=== PATIENT | female | born 1930 | race Caucasian/White ===

== ENCOUNTER 2019-07-02 06:15 | Observation (INO) ==
[2019-07-02] MEDS ORDERED: Albuterol 2.5 MG/3 ML NEBULIZER IH PRN (06:51)
[2019-07-02] MEDS ORDERED: Ringers Solution, Lactated 1,000 ML IVC SCH (07:00)
[2019-07-02] MEDS ORDERED: Lidocaine -MPF 2% 2 ML VIAL ONE ×2 (07:01→07:19)
[2019-07-02] MEDS ORDERED: Ondansetron 4 MG/2 ML VIAL IVP ONE (07:12)
[2019-07-02] MEDS ORDERED: *HR* Promethazine 25 MG/ML VIAL IVP PRN (07:12)
[2019-07-02] MEDS ORDERED: *HR* OxyCODONE Immed Rel 5 MG TABLET PO PRN ×2 (07:12→10:54)
[2019-07-02] MEDS ORDERED: *HR* HYDROmorphone (PF) 1 MG/ML SYRINGE IVP PRN (07:12)
[2019-07-02] MEDS ORDERED: Ethanol\\Acetic Acid\\Na Ace\\Ben 1,000 ML IRRIG.SOLN IR ONE (07:17)
[2019-07-02] MEDS ORDERED: *HR* Propofol 200 MG/20 ML VIAL IVP ONE (07:18)
[2019-07-02] MEDS ORDERED: Ropivacaine/PF 0.5% 30 ML VIAL ONE (07:24)
[2019-07-02] MEDS ORDERED: CeFAZolin Syr 2,000MG/20 ML 2,000 MG/20 ML SYRINGE IVPB ONE (07:28)
[2019-07-02] MEDS ORDERED: Acetaminophen IV 1,000 MG/100 ML INFUS..BTL ONE (08:00)
[2019-07-02] MEDS ORDERED: Dexamethasone 4 MG/ML VIAL ONE (08:35)
[2019-07-02] MEDS ORDERED: Ondansetron 4 MG/2 ML VIAL ONE (08:35)
[2019-07-02 10:05] LABS: Hematocrit 32.9 % (35.3-44.9); Hemoglobin 10.6 g/dL (11.5-15.4)
[2019-07-02] MEDS ORDERED: Temazepam 15 MG CAPSULE PO PRN (10:54)
[2019-07-02] MEDS ORDERED: traMADol 50 MG TABLET PO PRN (10:54)
[2019-07-02] MEDS ORDERED: Sennosides 8.6 MG TABLET PO PRN (10:54)
[2019-07-02] MEDS ORDERED: MOM Conc 10 ML UD.LIQ PO PRN (10:54)
[2019-07-02] MEDS ORDERED: Ondansetron 4 MG/2 ML VIAL IVP PRN (10:54)
[2019-07-02] MEDS ORDERED: *HR* OxyCODONE/APAP 5/325 TABLET PO PRN (10:54)
[2019-07-02] MEDS: Budesonide/Formoterol 80/4.5 1 PUFF INH IH SCH ×2 (11:54→20:36)
[2019-07-02] MEDS: Multivit/Ca/Min/Fe/FA 1 TAB TABLET PO SCH (13:35)
[2019-07-02] MEDS: Cholecalciferol (D-3) 1,000 UNIT (25MCG) TABLET PO SCH (13:35)
[2019-07-02] MEDS: Fluticasone Propionate Nasal 50 MCG/SPRAY BOTTLE NS SCH (13:36)
[2019-07-02] MEDS: Ringers Solution, Lactated 1,000 ML IVC SCH ×2 (13:42→18:23)
[2019-07-02] MEDS ORDERED: *HR* Enoxaparin 30 MG/0.3 ML SYRINGE SQ SCH (18:00)
[2019-07-02] MEDS: *HR* Enoxaparin 30 MG/0.3 ML SYRINGE SQ SCH (18:24)
[2019-07-02] MEDS ORDERED: traZODone 50 MG TABLET PO SCH (21:00)
[2019-07-02] MEDS ORDERED: rOPINIRole 1 MG TABLET PO SCH (21:00)
[2019-07-03] MEDS: *HR* Enoxaparin 30 MG/0.3 ML SYRINGE SQ SCH (05:11)
[2019-07-03 05:54] LABS: Hematocrit 30.8 % (35.3-44.9); Hemoglobin 9.9 g/dL (11.5-15.4)
[2019-07-03 05:59] LABS: BUN/Creatinine Ratio 32 (6-26); Blood Urea Nitrogen 21 mg/dL (8-23); Calcium 8.8 mg/dL (8.6-10.3); Carbon Dioxide 24 mEq/L (23-29); Chloride 104 mEq/L (98-107); Glucose 121 mg/dL (70-105); Osmolality,Calculated 282 (280-300); Sodium 134 mEq/L (136-145); eGFR For African Americans > 60 (> 60); eGFR For Non-African Americans > 60 (> 60)
[2019-07-03] MEDS: Cholecalciferol (D-3) 1,000 UNIT (25MCG) TABLET PO SCH (09:10)
[2019-07-03] MEDS: Multivit/Ca/Min/Fe/FA 1 TAB TABLET PO SCH (09:10)
[2019-07-03] MEDS: Fluticasone Propionate Nasal 50 MCG/SPRAY BOTTLE NS SCH (09:11)
[2019-07-03] MEDS: Budesonide/Formoterol 80/4.5 1 PUFF INH IH SCH (10:46)
[2019-07-03 11:04] VITALS: BP 124/62
== END 2019-07-03 16:00 | disposition home health service (06) | DRG 483 ==
LOC: SAMDAY 06:15 → 3NENU 10:21 → INTOOBSV 10:21
PROVIDERS: ADMIT Orthopaedic Surgery; ATTEND Orthopaedic Surgery

== ENCOUNTER 2019-08-09 13:59 | Inpatient (IN) ==
[2019-08-09] MEDS ORDERED: 0.9 % Sodium Chloride 250 ML IVC ONE (14:21)
[2019-08-09 14:51] LABS: Basophils % 0.3 %; Eosinophils % 0.2 %; Hematocrit 37.7 % (35.3-44.9); Hemoglobin 12.7 g/dL (11.5-15.4); Immature Granulocytes % 0.4 % (0-4); Lymphocytes # 1.8 K/mcL (0.6-4.6); Lymphocytes % 18.8 %; Mean Corpuscular HGB Conc 33.7 g/dL (31.6-35.5); Mean Corpuscular Hemoglobin 31.1 pg (28.0-33.3); Mean Corpuscular Volume 92.2 fL (83.0-100.0); Mean Platelet Volume 10.4 fL (9.4-12.4); Monocytes # 0.7 K/mcL (0.0-1.3); Monocytes % 6.7 %; Neutrophils # 7.2 K/mcL (1.6-8.9); Platelet Count 384 K/mcL (140-400); Red Blood Count 4.09 M/mcL (3.82-4.97); Red Cell Distribution Width 13.2 % (11.5-14.5); Segmented Neutrophils % 73.6 %; White Blood Count 9.7 K/mcL (4.3-11.1)
[2019-08-09 15:08] LABS: INR 1.1
[2019-08-09 15:11] LABS: Activated Partial Thrombo Time 32.6 Seconds (26.0-36.0)
[2019-08-09 15:15] LABS: BUN/Creatinine Ratio 26 (6-26); Blood Urea Nitrogen 20 mg/dL (8-23); Calcium 9.6 mg/dL (8.6-10.3); Carbon Dioxide 22 mEq/L (23-29); Chloride 106 mEq/L (98-107); Glucose 102 mg/dL (70-105); Osmolality,Calculated 291 (280-300); Potassium 3.8 mEq/L (3.5-5.1); Sodium 139 mEq/L (136-145); eGFR For African Americans > 60 (> 60); eGFR For Non-African Americans > 60 (> 60)
[2019-08-09] MEDS ORDERED: 0.9 % Sodium Chloride 250 ML ONE (15:26)
[2019-08-09] MEDS ORDERED: *HR* Heparin 5,000 UNIT/ML VIAL IVP PRN ×4 (15:46→15:48)
[2019-08-09] MEDS ORDERED: *HR* Heparin 5,000 UNIT/ML VIAL IVP ONE ×2 (15:46→15:48)
[2019-08-09] MEDS ORDERED: Heparin 25,000 UNIT/250 ML D5W 25,000 UNIT/250 ML IV.SOLN IVC SCH ×2 (16:00)
[2019-08-09 16:06] LABS: Thyroid Stimulating Hormone 2.065 mcIU/mL (0.340-5.600)
[2019-08-09] MEDS ORDERED: Naloxone 0.4 MG/ML INJ IVP PRN (16:16)
[2019-08-09] MEDS ORDERED: Metoprolol XL (24 HR) Succ 50 MG TAB.ER.24H PO SCH (16:18)
[2019-08-09] MEDS ORDERED: Levalbuterol Neb 0.63 MG/3 ML IH PRN (16:20)
[2019-08-09 16:22] LABS: Hematocrit 37.2 % (35.3-44.9); Hemoglobin 12.4 g/dL (11.5-15.4); Mean Corpuscular HGB Conc 33.3 g/dL (31.6-35.5); Mean Corpuscular Hemoglobin 30.8 pg (28.0-33.3); Mean Corpuscular Volume 92.5 fL (83.0-100.0); Mean Platelet Volume 10.5 fL (9.4-12.4); Platelet Count 372 K/mcL (140-400); Red Blood Count 4.02 M/mcL (3.82-4.97); Red Cell Distribution Width 13.2 % (11.5-14.5); White Blood Count 10.6 K/mcL (4.3-11.1)
[2019-08-09 16:27] LABS: INR 1.2; Prothrombin Time 13.2 Seconds (9.4-12.1)
[2019-08-09 16:29] LABS: Heparin anti-factor XA UFH 0.01 IU/mL (0.30-0.70)
[2019-08-09] MEDS ORDERED: Ringers Solution, Lactated 1,000 ML IVC SCH (17:00)
[2019-08-09] MEDS: rOPINIRole 1 MG TABLET PO SCH (20:04)
[2019-08-09] MEDS: *HR* HYDROcodone/Acet 5/325 mg TABLET PO PRN (20:07)
[2019-08-09 22:24] LABS: Troponin I 0.07 ng/mL (< 0.04)
[2019-08-10 03:20] LABS: Alanine Aminotransferase 11 Units/L (7-52); Albumin 3.3 g/dL (3.5-5.7); Alkaline Phosphatase 66 Units/L (34-104); Aspartate Amino Transferase 14 Units/L (13-39); BUN/Creatinine Ratio 30 (6-26); Blood Urea Nitrogen 19 mg/dL (8-23); Calcium 8.7 mg/dL (8.6-10.3); Carbon Dioxide 22 mEq/L (23-29); Chloride 107 mEq/L (98-107); Globulin 3.2 g/dL (2.4-3.5); Glucose 102 mg/dL (70-105); Osmolality,Calculated 290 (280-300); Potassium 3.2 mEq/L (3.5-5.1); Sodium 139 mEq/L (136-145); Total Protein 6.5 g/dL (6.4-8.9); eGFR For African Americans > 60 (> 60); eGFR For Non-African Americans > 60 (> 60)
[2019-08-10] MEDS: *HR* HYDROcodone/Acet 5/325 mg TABLET PO PRN ×2 (05:40→11:42)
[2019-08-10] MEDS ORDERED: Isovue-370 500 ML BOTTLE IVP ONE (07:45)
[2019-08-10] MEDS: traZODone 50 MG TABLET PO SCH ×2 (07:46→20:39)
[2019-08-10] MEDS: Metoprolol XL (24 HR) Succ 50 MG TAB.ER.24H PO SCH (08:59)
[2019-08-10] MEDS: Apixaban 5 MG TABLET PO SCH ×2 (14:03→20:39)
[2019-08-10] MEDS: rOPINIRole 1 MG TABLET PO SCH (20:38)
[2019-08-10] MEDS ORDERED: Apixaban 5 MG TABLET PO SCH (21:00)
[2019-08-11] MEDS: Apixaban 5 MG TABLET PO SCH ×2 (08:13→20:35)
[2019-08-11] MEDS: Metoprolol XL (24 HR) Succ 50 MG TAB.ER.24H PO SCH (08:13)
[2019-08-11] MEDS: *HR* HYDROcodone/Acet 5/325 mg TABLET PO PRN ×2 (08:13→20:35)
[2019-08-11 09:17] LABS: BUN/Creatinine Ratio 28 (6-26); Blood Urea Nitrogen 17 mg/dL (8-23); Calcium 8.9 mg/dL (8.6-10.3); Carbon Dioxide 22 mEq/L (23-29); Chloride 107 mEq/L (98-107); Glucose 117 mg/dL (70-105); Magnesium 1.9 mg/dL (1.6-2.6); Osmolality,Calculated 289 (280-300); Phosphorous 3.2 mg/dL (2.7-4.5); Potassium 3.7 mEq/L (3.5-5.1); Sodium 138 mEq/L (136-145); eGFR For African Americans > 60 (> 60); eGFR For Non-African Americans > 60 (> 60)
[2019-08-11] MEDS: traZODone 50 MG TABLET PO SCH (20:35)
[2019-08-11] MEDS: rOPINIRole 1 MG TABLET PO SCH (20:35)
[2019-08-12 02:36] LABS: Hematocrit 34.3 % (35.3-44.9); Hemoglobin 11.3 g/dL (11.5-15.4); Mean Corpuscular HGB Conc 32.9 g/dL (31.6-35.5); Mean Corpuscular Hemoglobin 30.9 pg (28.0-33.3); Mean Corpuscular Volume 93.7 fL (83.0-100.0); Mean Platelet Volume 11.2 fL (9.4-12.4); Platelet Count 363 K/mcL (140-400); Red Blood Count 3.66 M/mcL (3.82-4.97); Red Cell Distribution Width 13.2 % (11.5-14.5); White Blood Count 8.3 K/mcL (4.3-11.1)
[2019-08-12 02:56] LABS: BUN/Creatinine Ratio 39 (6-26); Blood Urea Nitrogen 24 mg/dL (8-23); Calcium 8.7 mg/dL (8.6-10.3); Carbon Dioxide 20 mEq/L (23-29); Chloride 108 mEq/L (98-107); Glucose 107 mg/dL (70-105); Osmolality,Calculated 291 (280-300); Potassium 3.8 mEq/L (3.5-5.1); Sodium 138 mEq/L (136-145); eGFR For African Americans > 60 (> 60); eGFR For Non-African Americans > 60 (> 60)
[2019-08-12] MEDS: *HR* HYDROcodone/Acet 5/325 mg TABLET PO PRN (06:31)
[2019-08-12] MEDS: Metoprolol XL (24 HR) Succ 50 MG TAB.ER.24H PO SCH (08:33)
[2019-08-12] MEDS: Apixaban 5 MG TABLET PO SCH ×2 (08:33→21:06)
[2019-08-12] MEDS: Diltiazem SR (12hr) 60 MG CAPSULE PO SCH ×2 (14:10→21:06)
[2019-08-12] MEDS: traZODone 50 MG TABLET PO SCH (21:06)
[2019-08-12] MEDS: rOPINIRole 1 MG TABLET PO SCH (21:06)
[2019-08-13 01:54] LABS: Hematocrit 35.9 % (35.3-44.9); Hemoglobin 11.4 g/dL (11.5-15.4); Mean Corpuscular HGB Conc 31.8 g/dL (31.6-35.5); Mean Corpuscular Hemoglobin 30.6 pg (28.0-33.3); Mean Corpuscular Volume 96.5 fL (83.0-100.0); Mean Platelet Volume 11.1 fL (9.4-12.4); Platelet Count 339 K/mcL (140-400); Red Blood Count 3.72 M/mcL (3.82-4.97); Red Cell Distribution Width 13.2 % (11.5-14.5); White Blood Count 8.6 K/mcL (4.3-11.1)
[2019-08-13 02:13] LABS: Magnesium 1.9 mg/dL (1.6-2.6); Phosphorous 3.8 mg/dL (2.7-4.5)
[2019-08-13 02:14] LABS: BUN/Creatinine Ratio 33 (6-26); Blood Urea Nitrogen 23 mg/dL (8-23); Calcium 9.1 mg/dL (8.6-10.3); Carbon Dioxide 23 mEq/L (23-29); Chloride 106 mEq/L (98-107); Glucose 118 mg/dL (70-105); Osmolality,Calculated 293 (280-300); Potassium 3.9 mEq/L (3.5-5.1); Sodium 139 mEq/L (136-145); eGFR For African Americans > 60 (> 60); eGFR For Non-African Americans > 60 (> 60)
[2019-08-13] MEDS: *HR* HYDROcodone/Acet 5/325 mg TABLET PO PRN ×2 (07:41→17:59)
[2019-08-13] MEDS: Apixaban 5 MG TABLET PO SCH (08:28)
[2019-08-13] MEDS: Diltiazem SR (12hr) 60 MG CAPSULE PO SCH (08:28)
[2019-08-13] MEDS: Metoprolol XL (24 HR) Succ 50 MG TAB.ER.24H PO SCH (08:30)
[2019-08-13 11:00] VITALS: BP 132/89
== END 2019-08-13 18:40 | DRG 309 ==
LOC: EMEROOARM 13:59 → 2NENU 13:59 → SUATTDRO 16:02 → 2NENU 18:39
PROVIDERS: ADMIT Internal Medicine; ATTEND Internal Medicine